=== PATIENT | male | born 1980 | race Caucasian/White ===

== ENCOUNTER 2024-03-20 20:46 | Emergency (ER) | payer SELFPAY ==
[2024-03-20 20:54] VITALS: BP 138/91
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
[2024-03-20] MEDS: MOTRIN 400 MG PO (21:40)
[2024-03-20 21:58] LABS: Urine Albumin Negative (Neg - Trace); Urine Bilirubin Negative (Negative); Urine Character Clear (Clear); Urine Color Yellow; Urine Glucose Negative (Negative); Urine Ketone Negative (Negative); Urine Leukocyte Negative (Negative); Urine Nitrite Negative (Negative); Urine Occult Blood Negative (Negative); Urine Specific Gravity 1.015 (<1.030); Urine Urobilinogen Negative (Neg - 1+)
== END 2024-03-20 22:50 | disposition home or self-care (01) ==
LOC: EMR 20:46
PROVIDERS: EMERGENCY PHYSICIAN Emergency Medicine; FAMILY PHYSICIAN Nurse Practitioner Family
DX: S30.22XA Contusion of scrotum and testes, initial encounter (principal); Y04.0XXA Assault by unarmed brawl or fight, initial encounter; Y99.0 Civilian activity done for income or pay; J45.909 Unspecified asthma, uncomplicated
CPT/HCPCS: 99284; 76870; 81003; 93976

== ENCOUNTER 2024-04-13 19:32 | Emergency (ER) | payer OTHER, SELFPAY ==
[2024-04-13 19:50] VITALS: BP 126/89
[2024-04-13 20:04] LABS: % Basophils 0.6 % (0-2); % Eosinophils 0.1 % (0-6); % Immature Granulocytes 0.2 % (0-0.5); % Lymphocytes 6.5 % (20.5-51.1); % Monocytes 1.2 % (1.7-9.3); % Neutrophils 91.4 % (42.2-75.2); Absolute Basophils 0.1 10^3/uL (0-0.2); Absolute Lymphocytes 0.7 10^3/uL (1.2-3.4); Absolute Monocytes 0.1 10^3/uL (0.1-0.6); Absolute Neutrophils 9.2 10^3/uL (1.4-6.5); Hematocrit 49.5 % (39.0-52.0); Hemoglobin 17.9 g/dL (13.0-18.0); Mean Corp Hgb Conc. 36.2 g/dL (33.0-37.0); Mean Corpuscular Hgb 30.7 pg (27.0-31.0); Mean Corpuscular Volume 84.9 fL (80.0-94.0); Mean Platelet Volume 10.8 fL (7.4-10.4); Nucleated Red Blood Cells % 0 % (-); Platelet Count 218 10^3/uL (130-400); Red Blood Cell Count 5.83 10^6/uL (4.70-6.10); Red Cell Dist. Width 11.6 % (11.5-14.5)
[2024-04-13 20:16] LABS: ALT (SGPT) 42 U/L (0-50); AST (SGOT) 41 U/L (17-59); Albumin 5.1 g/dl (3.5-5.0); Alkaline Phosphatase 49 U/L (38-126); Blood Urea Nitrogen 15 mg/dl (9-20); Calcium 9.7 mg/dl (8.4-10.2); Carbon Dioxide 27 mmol/L (22-30); Chloride 102 mmol/L (98-107); Glucose 172 mg/dl (70-99); Potassium 4.4 mmol/L (3.5-5.1); Sodium 137 mmol/L (135-145); Total Bilirubin 1.2 mg/dl (0.2-1.3); Total Protein 7.6 g/dl (6.3-8.2); eGFR > 60.00
[2024-04-13] MEDS: LEVAQUIN 500 MG PO (21:51)
[2024-04-13] MEDS: DUONEB 3 ML INH (21:51)
[2024-04-13 22:00] VITALS: BP 127/85
--- NOTE | 2024-04-13 22:01 | ED.GENMED ---
History of Present Illness
General
Chief Complaint: Breathing Problem
Source: patient
Exam Limitations: none
Time Seen by Provider: 04/13/24 21:07
Nursing documentation reviewed up to this point in time: agreed with
History of Present Illness
History of Present Illness:
44-year-old male in the presents with shortness of breath so pressure in his chest diagnosed with pneumonia few weeks ago treated with Zithromax went to an urgent care had normal chest x-ray referred here does have asthma was given on his
own at the urgent care, has had some sick contacts, no calf pain no history of DVT PE nondrinker non-smoker
Past History
Past History
ED Past Medical History: Asthma, Other (TBI) and Other (Ocular migraines)
Patient has exhibited threatening behavior?: No
Social History
Tobacco: Non-smoker
Alcohol: Occasional
Drug: None
Personal:
Living: with family
Employment: Employed
Family History
Family History: Other (Mother - Aneurysm unspecified 'in her 40s')
Review of Systems
Review of Systems
All Other Systems: Not applicable
Respiratory: Reports cough and trouble breathing
Cardiac: Reports no symptoms
ABD/GI: Reports no symptoms
: Reports no symptoms
Musculoskeletal: Reports no symptoms
Skin: Reports no symptoms
Phy Exam
Physical Exam
Physical Exam:
Physical Exam
General: no apparent distress, not acutely ill
Neck: No jaundice midline trachea
Heart: s1/s2 regular rate and rhythm, no murmur. equal radial pulses.
Lungs: Wheezing at the bases
Abdomen: Nontender
Neuro: alert and oriented. no focal neurological deficits
Skin: no rash
Psychiatric: well kept. interactive and cooperative
Extremities: no edema. no calf tenderness.
Course
Orders/Labs/Results
Orders:
Orders
04/13/24 19:55
Complete Blood Count/With Diff Urgent
Comprehensive Metabolic Panel Urgent
04/13/24 21:15
Ipratropium/Albuterol Sulfate [Duoneb] 3 ml INH R NOW STA
Prednisone [Deltasone] 50 mg PO NOW STA
04/13/24 21:34
CT Chest Pe Study Urgent
Comment:
Reason For Exam: sob
04/13/24 21:45
LevoFLOXacin [Levaquin] 500 mg PO NOW STA
04/13/24 22:02
Electrocardiogram (*1) Urgent
Reason for Study: Palpitations
EKG- Treatment ONCE
04/14/24 08:00
LevoFLOXacin [Levaquin] 500 mg PO DAILY
Abnormal Lab Results
04/13/24
19:55
MPV 10.8 H fL
(7.4-10.4)
Absolute Neuts (auto) 9.2 H 10^3/uL
(1.4-6.5)
Absolute Lymphs (auto) 0.7 L 10^3/uL
(1.2-3.4)
Neutrophils % 91.4 H %
(42.2-75.2)
Lymphocytes % 6.5 L %
(20.5-51.1)
Monocytes % 1.2 L %
(1.7-9.3)
Glucose 172 H mg/dl
(70-99)
Albumin 5.1 H g/dl
(3.5-5.0)
04/13/24 19:55
04/13/24 19:55
Vital Signs
Initial and Last Documented VS:
Initial Vital Signs
Temp Pulse Resp BP Pulse Ox
98.9 F 74 18 126/89 97
04/13/24 19:50 04/13/24 19:50 04/13/24 19:50 04/13/24 19:50 04/13/24 19:50
Last Documented Vital Signs
Temp Pulse Resp BP Pulse Ox
98.9 F 67 19 126/89 95
04/13/24 19:50 04/13/24 21:45 04/13/24 21:45 04/13/24 19:50 04/13/24 21:45
MDM/Problems Addressed
Differential Diagnosis Includes:
Bronchitis pneumonia asthma PE does not appear to have a pneumothorax doubt dissection
MDM/Problems Addressed:
Shortness of breath
Chronic conditions affecting care: Asthma
Acute Exacerbation and/or Progression of Chronic Illness: Asthma
*Radiology
Radiology exam reviewed: radiology read reviewed
*Pulse Oximetry
Patient hypoxic: no
*EKG
Interpreted by ED Provider?: Yes
Interpretation: normal
Comparison EKG: no comparison EKG present
Heart Rate: 78
Rate: normal
Rhythm: sinus
Ischemia: non-specific ST changes
*Critical Care Note
Total Time (30-74mins, 75-104mins- exclusive of procedures): Not Applicable
Update Note
Update Note:
Update etiology of his symptoms not highly clear no big pneumonia on his x-ray no obvious pneumo will check CT to rule out PE,
Update CT report noted patient peers comfortable feels better after neb had a prescription for Medrol from the urgent care
ED Attending Note
-
Portions of this chart may have been created with voice recognition software.� Occasional wrong word or��sound alike� substitutions may have occurred due to the inherent limitations of voice recognition software.
Discharge Plan
Departure
Patient Disposition: Home (Routine Discharge)
Date of Disposition: 04/13/24
Time of Disposition: 23:16
Patient with high blood pressure during this ER visit?: No
Discharge Problem:
Acute bronchitis
Instructions: Bronchitis in adults - ED discharge instructions
Prescriptions:
No Action
diclofenac sodium 75 MG tablet,delayed release (DR/EC)
75 mg PO BID PRN (Reason: pain, take with food) Qty: 24 0RF
Referrals:
Amanda Mccollum NP [Family Provider] - Next open appointment
Stand Alone Forms: Return to Work
Activity Restrictions/Additional Instructions:
Continue Medrol steroid pack as prescribed
Albuterol 2 puffs every 4-6 hours for cough
Levaquin antibiotic as prescribed
Interventions
Interventions:
*Risk Screen - Suicide Last Done: 04/13/24 19:50
*General Assessment Last Done: 04/13/24 19:50
ED- Fall Risk Assessment Last Done: 04/13/24 21:58
ED- Cardiac Assessment Last Done: 04/13/24 21:58
ED- Pulmonary Assessment Last Done: 04/13/24 21:58
Discharge Date and Time
Print Language: MOLDOVAN
[2024-04-13 23:22] VITALS: BP 137/82
== END 2024-04-13 23:37 | disposition home or self-care (01) ==
LOC: EMR 19:32
PROVIDERS: EMERGENCY PHYSICIAN Emergency Medicine; FAMILY PHYSICIAN Nurse Practitioner Family
DX: J20.9 Acute bronchitis, unspecified (principal); J45.909 Unspecified asthma, uncomplicated
CPT/HCPCS: 94640; 99284; 71275; 80053; 85025; 93005; Q9967